=== PATIENT | female | born 1995 | race African-American/Black ===

== ENCOUNTER 2018-09-09 14:41 | Emergency (ER) | payer OTHER ==
[2018-09-09 14:47] VITALS: BP 124/72; PULSE 94; TEMP 98.2; BMI 24.2
--- NOTE | 2018-09-09 14:48 | PDOC ---
Rapid Medical Evaluation Chief Complaint: Pain Medical Evaluation: Allergies Allergy/AdvReac Type Severity Reaction Status Date / Time No Known Allergies Allergy Verified 09/09/18 14:27 09/09/18 14:46 I have performed a brief in-person evaluation of this patient. The patient presents with a chief complaint of: facial contusion and right 4th digit pain - tripped on sidewalk and fell forward striking 35week preg abd and face. Has been cleared by OB today Pertinent physical exam findings: superficial abrasion to face, right 4th digit swollen but FROM I have ordered the following: nothing The patient will proceed to the ED for further evaluation Discharge Disposition - Diagnosis Contusion - Referrals - Patient Instructions - Post Discharge Activity
--- NOTE | 2018-09-09 15:12 | PDOC ---
History of Present Illness - General Chief Complaint: Pain Stated Complaint: FALL Time Seen by Provider: 09/09/18 14:53 History Source: Patient - History of Present Illness Occurred: reports: yesterday Severity: reports: mild Pain Location: reports: face Past History - Past Medical History Allergies/Adverse Reactions: Allergies Allergy/AdvReac Type Severity Reaction Status Date / Time No Known Allergies Allergy Verified 09/09/18 14:27 Home Medications: Ambulatory Orders Vitamins (Sjr) - 1 tab PO DAILY 09/09/18 - Suicide/Smoking/Psychosocial Hx Smoking History: Never smoked Have you smoked in the past 12 months: No Information on smoking cessation initiated: No Hx Alcohol Use: No Drug/Substance Use Hx: No Review of Systems - Review of Systems Constitutional: No: Chills, Fever ABD/GI: No: Nausea, Vomiting, Abdominal cramping Musculoskeletal: Yes: Joint Pain. No: Back Pain, Neck Pain Neurological: No: Headache, Dizziness *Physical Exam - Vital Signs Last Vital Signs Temp Pulse Resp BP Pulse Ox 98.2 F 94 H 20 124/72 99 09/09/18 14:43 09/09/18 14:43 09/09/18 14:43 09/09/18 14:43 09/09/18 14:43 - Physical Exam General Appearance: Yes: Appropriately Dressed. No: Apparent Distress HEENT: positive: Normal Voice, Other (~1x2cm abrasion to R cheek near eye, no sig swelling and no step offs or crepitus, conjunc clear, EOMI) Neck: positive: Supple Gastrointestinal/Abdominal: negative: Tender Extremity: positive: Normal Inspection, Normal Range of Motion. negative: Tender, Swelling Integumentary: positive: Dry, Warm Neurologic: positive: Fully Oriented, Alert, Normal Mood/Affect Moderate Sedation - Procedure Monitoring Vital Signs: Procedure Monitoring Vital Signs Temperature 98.2 F 09/09/18 14:43 Pulse Rate 94 H 09/09/18 14:43 Respiratory Rate 20 09/09/18 14:43 Blood Pressure 124/72 09/09/18 14:43 O2 Sat by Pulse Oximetry (%) 99 09/09/18 14:43 Medical Decision Making - Medical Decision Making 09/09/18 15:07 23 yo F, ~35 weeks w/ no issues w/preg so far, here to be evaluated after fall. Patient states while running to catch a [employer] bus yesterday she tripped and fell, striking face against the ground. Denies any LOC and no headache, dizziness, nausea, vomiting. States she did not hit her abdomen and denies abd pain or vag bleed since fall. Also reports minor pain to R 5th finger. Patient has since been cleared by L&D and sent down to ED for eval See exam Facial abrasion s/p fall No e/o serious injury ~35 weeks preg and no abd pain/vag bleed since fall, cleared by L&D prior to ED eval -Local wound care in ED -Dc in stable condition 09/09/18 15:12 *DC/Admit/Observation/Transfer Diagnosis at time of Disposition: Contusion Qualifiers: Encounter type: initial encounter Contusion area: head Contusion of head detail : unspecified part of head Qualified Code(s): S00.93XA - Contusion of unspecified part of head, initial encounter Fall Qualifiers: Encounter type: initial encounter Qualified Code(s): W19.XXXA - Unspecified fall, initial encounter - Discharge Dispostion Disposition: HOME - Referrals - Patient Instructions Printed Discharge Instructions: DI for Abrasion Additional Instructions: Keep wound clean and dry Apply bacitracin or neosporin to wound daily Return for any worsening of symptoms as discussed - Post Discharge Activity
== END 2018-09-09 15:56 | disposition home or self-care (01) ==
LOC: JERFT 14:41
DX: S00.93XA Contusion of unspecified part of head, initial encounter (principal); W18.39XA Other fall on same level, initial encounter; Y93.89 Activity, other specified; Y92.410 Unspecified street and highway as the place of occurrence of the external cause
CPT/HCPCS: 99281-25

== ENCOUNTER 2018-10-15 11:00 | Inpatient (IN) | payer OTHER ==
[~2018-10-15 11:00] MED LIST: DEXTROSE 5%-LACTATED RINGERS 1,000 ML IV SCH
[2018-10-15 11:50] VITALS: BMI 25.2
[2018-10-15] MEDS ORDERED: OXYTOCIN 30 UNITS in 0.9% NS 30 UNIT/500 ML INFUS.BAG IVPB ONE (12:10)
[2018-10-15] MEDS ORDERED: OXYTOCIN 20 UNITS in 0.9% NS 20 UNIT/1,000 ML INFUS.BAG IV ONE ×2 (12:10→14:27)
--- NOTE | 2018-10-15 12:16 | HP ---
Past Medical History - Admission Chief Complaint: Labor History Source: Patient Limitations to Obtaining History: No Limitations - Past Medical History ...: 2 ...Para: 1 ...Term: 1 ...: 0 ...Spon : 0 ...Induced : 0 ...Multiple Gestation: 0 ...LMP: 01/05/18 ... Weeks Gestation by Dates: 40.2 ...EDC by Dates: 10/13/18 ...EDC by Sono: 10/14/18 - Past Surgical History Past Surgical History: Yes: None Hx Myomectomy: No Hx Transabdominal Cerclage: No - Smoking History Smoking history: Never smoked Have you smoked in the past 12 months: No - Alcohol/Substance Use Hx Alcohol Use: No History of Substance Use: reports: None - Social History History of Recent Travel: No Home Medications - Allergies Allergies/Adverse Reactions: Allergies Allergy/AdvReac Type Severity Reaction Status Date / Time No Known Allergies Allergy Verified 10/14/18 11:49 - Home Medications Home Medications: Ambulatory Orders Vitamins (Sjr) - 1 tab PO DAILY 09/09/18 Review of Systems - Review of Systems Constitutional: reports: No Symptoms Eyes: reports: No Symptoms HENT: reports: No Symptoms Neck: reports: No Symptoms Cardiovascular: reports: No Symptoms Respiratory: reports: No Symptoms Gastrointestinal: reports: Abdominal Pain Genitourinary: reports: No Symptoms Breasts: reports: No Symptoms Reported Musculoskeletal: reports: No Symptoms Integumentary: reports: No Symptoms Neurological: reports: No Symptoms Endocrine: reports: No Symptoms Hematology/Lymphatic: reports: No Symptoms Psychiatric: reports: No Symptoms Physical Exam - Maternity Vital Signs: Vital Signs Temperature 98.2 F 10/15/18 11:15 Pulse Rate 95 H 10/15/18 11:15 Respiratory Rate 20 10/15/18 11:15 Blood Pressure 117/68 10/15/18 11:15 O2 Sat by Pulse Oximetry (%) Hemorrhage Risk Assessment - Risk Factors Risk Score: 0 Risk Level: Low Risk Problem List - Problems (1) Labor established Code(s): [id number] - Assessment/Plan IUP at 40+ weeks Labor Cat 1 Plan Anticipate vaginal delivery
[2018-10-15 12:26] LABS: EOS % 0.2 % (0-4.5); HEMOGLOBIN 12.3 GM/dL (10.7-15.3); LYMPH % 14.6 % (8-40); MCHC 33.3 g/dl (32.0-36.0); MEAN PLT VOLUME 8.2 fl (7.5-11.1); MONO % 4.8 % (3.8-10.2); NEUT % 79.4 % (42.8-82.8); PLATELET COUNT 200 K/MM3 (134-434); RBC 4.93 M/mm3 (3.60-5.2); RDW 15.8 % (11.6-15.6); WHITE BLOOD COUNT 9.9 K/mm3 (4.0-10.0)
[2018-10-15] MEDS ORDERED: CITRIC ACID/SODIUM CITRATE 30 ML UNIT-DOSE CUP PO ONE (12:28)
[2018-10-15] MEDS ORDERED: ELECTROLYTE-148 SOLN 1,000 ML IV SCH (12:30)
[2018-10-15 12:42] LABS: INR 1.04 (0.83-1.09); PROTHROMBIN TIME (PATIENT) 12.3 SEC (9.7-13.0)
--- NOTE | 2018-10-15 12:44 | PN ---
Ante-Partal Exam - Subjective Subjective: Pt wiith abd pain Vital Signs: Vital Signs Temperature 98.2 F 10/15/18 11:15 Pulse Rate 102 H 10/15/18 12:00 Respiratory Rate 20 10/15/18 12:00 Blood Pressure 120/73 10/15/18 12:00 O2 Sat by Pulse Oximetry (%) Bleeding: No Headache: No Visual changes: No Right upper quadrant pain: No - Contractions Contractions: Yes Monitor Mode: External - Exam during Labor Variability: Moderate Category: I Monitor Accelerations: Present Monitor Decelerations: None Exam: Vaginal Dilatation (cm): FD Effacement (%): 100 Amniotic Membrane Status: Ruptured Amniotic Fluid: Clear Presentation: Vertex Station: +1 - Intrapartum Hemorrhage Risk Risk Score: 0 Risk Level: Low Risk - Assessment/Plan Assessment/Plan: Anticipate vaginal delivery
[2018-10-15 12:45] LABS: ACTIVATED PTT 30.2 SECONDS (25.2-36.5)
[2018-10-15 12:49] LABS: ANION GAP 8 MMOL/L (8-16); BLOOD UREA NITROGEN 7 mg/dL (7-18); CALCIUM 8.6 mg/dL (8.5-10.1); CHLORIDE 103 mmol/L (98-107); CO2 25 mmol/L (21-32); CREATININE 0.6 mg/dL (0.55-1.3); GLUCOSE,RANDOM 97 mg/dL (74-106); POTASSIUM 3.8 mmol/L (3.5-5.1); SODIUM 136 mmol/L (136-145)
[2018-10-15] MEDS ORDERED: LIDOCAINE HCL 1% PRESERVATIVE FREE - 30ML VIAL ONE (13:00)
[2018-10-15] MEDS: OXYTOCIN 20 UNITS in 0.9% NS 20 UNIT/1,000 ML INFUS.BAG IV SCH ×2 (13:03→14:45)
[2018-10-15] MEDS ORDERED: BISACODYL 10 MG SUPP.RECT RC PRN (13:14)
[2018-10-15] MEDS ORDERED: BENZOCAINE 28 GM HEMORRHOIDAL OINTMENT PR PRN (13:14)
[2018-10-15] MEDS ORDERED: WITCH HAZEL 50% (TUCKS) 40 PAD/JAR PAD TP PRN (13:14)
[2018-10-15] MEDS ORDERED: BENZOCAINE 20% 57 GM BOTTLE TP PRN (13:14)
[2018-10-15] MEDS ORDERED: METHYLERGONOVINE MALEATE 0.2 MG/1 ML AMP IM PRN (13:14)
[2018-10-15] MEDS: IBUPROFEN 600 MG TABLET (FP) PO PRN (18:12)
[2018-10-15] MEDS: ACETAMINOPHEN 325 MG TABLET (FP) PO PRN (18:13)
[2018-10-16 08:05] LABS: BASO % 0.4 % (0-2.0); HEMATOCRIT 35.9 % (32.4-45.2); HEMOGLOBIN 11.9 GM/dL (10.7-15.3); LYMPH % 18.7 % (8-40); MCH 24.6 pg (25.7-33.7); MCHC 33.3 g/dl (32.0-36.0); MEAN CELL VOLUME 73.8 fl (80-96); MEAN PLT VOLUME 8.5 fl (7.5-11.1); MONO % 5.2 % (3.8-10.2); NEUT % 74.7 % (42.8-82.8); PLATELET COUNT 235 K/MM3 (134-434); RBC 4.86 M/mm3 (3.60-5.2); RDW 15.5 % (11.6-15.6); WHITE BLOOD COUNT 14.8 K/mm3 (4.0-10.0)
[2018-10-16] MEDS ORDERED: FLU VACCINE QUAD 60 MCG/0.5 ML (MDV 18-19) IM ONE (10:00)
[2018-10-16] MEDS ORDERED: DIPHTH,PERTUSS(ACELL),TET 0.5 ML DISP.SYRIN IM ONE (10:00)
[2018-10-16] MEDS: IBUPROFEN 600 MG TABLET (FP) PO PRN (16:37)
[2018-10-16] MEDS: ACETAMINOPHEN 325 MG TABLET (FP) PO PRN (16:37)
--- NOTE | 2018-10-17 08:53 | DS ---
Physical Exam-CLAIMS EXAMINER Vital Signs: Vital Signs Temperature 98.6 F 10/16/18 21:18 Pulse Rate 82 10/16/18 21:18 Respiratory Rate 18 10/16/18 21:18 Blood Pressure 107/63 10/16/18 21:18 O2 Sat by Pulse Oximetry (%) 100 10/15/18 14:30 Constitutional: Yes: Well Nourished, No Distress Neck: Yes: WNL Cardiovascular: Yes: WNL Respiratory: Yes: WNL Gastrointestinal: Yes: WNL, Soft Uterus: Yes: Normal ....Post : Yes: Uterus firm, Uterus non-tender Breast(s): Yes: WNL Musculoskeletal: Yes: WNL Extremities: Yes: WNL Edema: No Neurological: Yes: WNL, Alert, Oriented Labs: CBC, BMP 10/16/18 07:00 10/15/18 12:15 Delivery - Delivery Vaginal Delivery: No Problems Type of Anesthesia: Local Episiotomy/Laceration: Midline EBL (cc): 400 Delivery, Single - Stages of Labor Date 1st Stage Initiatied: 10/15/18 Time 1st Stage Initiated: 04:00 Date 2nd Stage Initiated: 10/15/18 Time 2nd Stage Initiated: 12:30 Date of Delivery: 10/15/18 Time of Delivery: 12:58 Time Placenta Delivered: 13:03 - Condition of Infant Upsetter/Weatherization Field Technician Present: No Infant Gender: Female Weight: 8 lb 2 oz Position: OP Total Hours ROM (Hrs/Mins): 0hrs 59min - 1 Minute Total Score: 9 5 Minutes Total Score: 9 - Feeding Plan Initial Plan: Exclusive throughout hospitalization Discharge Summary Reason For Visit: LABOR Current Active Problems Labor established (Acute) Procedures: Principal: Normal vaginal delivery Condition: Good - Instructions Diet, Activity, Other Instructions: Physical activity Resume your normal everyday activity as tolerated no heavy lifting or exercise until seen by your surgeon. You may walk unlimited nichol of and climb stairs. You may resume driving the car when you feel safe and comfortable behind the wheel. No sexual activity as instructed. Wound care If you have a bandage, leave it on, and keep dry for 48-72 hours. After that time discard the outer bandage. If they are tapes on the skin under the out of bandage leave them in place. They will peel off in the next 7 to 10 days. Do Not Peel them off. You may shower the day after surgery. If there are tapes present on the skin, you may shower over them. Diet There are no dietary restrictions. Eat healthy, high-fiber foods. Drink 6 to 8 glasses of liquid each day. This will assist in keeping your bowels are regular. Pain management You may take Tylenol or acetaminophen or Ibuprofen (for example, Motrin, Advil etc.) from my pain prescription medication is ordered should be taken as prescribed for moderate to severe pain. Call MD for any of the following: Severe pain not relieved by medication Fever of 101 or higher Excessive bleeding or drainage on dressing Inability to urinate Disposition: HOME - Home Medications Comprehensive Discharge Medication List: Ambulatory Orders Vitamins (Sjr) - 1 tab PO DAILY 09/09/18
[2018-10-17 09:49] VITALS: BP 120/77; PULSE 102; TEMP 98.4
[2018-10-17] MEDS: ACETAMINOPHEN 325 MG TABLET (FP) PO PRN (11:00)
[2018-10-17] MEDS: IBUPROFEN 600 MG TABLET (FP) PO PRN (11:00)
== END 2018-10-17 12:25 | disposition home or self-care (01) | DRG 373 ==
LOC: JLDR 11:00 → J3W 14:00
PROVIDERS: ADMIT Obstetrics & Gynecology; ATTEND Obstetrics & Gynecology
PROC: 10E0XZZ Delivery of Products of Conception, External Approach (ICD-10-PCS; principal; 2018-10-15)
PROC: 0W8NXZZ Division of Female Perineum, External Approach (ICD-10-PCS; 2018-10-15)
DX: O80 Encounter for full-term uncomplicated delivery (principal); Z3A.40 40 weeks gestation of pregnancy; Z37.0 Single live birth
CPT/HCPCS: 36415; 59409; 80048; 85025; 85610; 85730; 86593; 86850; 86900; 86901; 90688; 90715; G0008